=== PATIENT | female | born 1955 | race African-American/Black ===

== ENCOUNTER 2021-04-09 12:59 | Inpatient (IN) ==
[2021-04-09] MEDS ORDERED: FUROSEMIDE 40 MG/4 ML VIAL IV STA (13:55)
[2021-04-09] MEDS ORDERED: MORPHINE 2 MG/1 ML SYRINGE IV STA (13:55)
[2021-04-09 14:03] LABS: ABG Base Excess 4.6 MMOL/L (-2.5-2.5); ABG HCO3 28.2 MMOL/L (20-26); ABG Oxygen Saturation 83.6 % (95-100); ABG PCO2 45.9 MM HG (35-48); ABG PH 7.421 (7.35-7.45); ABG PO2 49.7 MM HG (80-95); ABG TCO2 26.4 MMOL/L (23-27)
[2021-04-09] MEDS ORDERED: VANCOMYCIN INJ 2,000 MG in SODIUM CHLORIDE 0.9% 500 ML IV ONE (14:03)
[2021-04-09] MEDS ORDERED: cefTRIAXone 2,000 MG in SODIUM CHLORIDE 0.9% 100 ML IV ONE (14:03)
[2021-04-09 14:26] LABS: Calcium 8.5 MG/DL (8.5-10.1); Osmolality,Calculated 288.1 MOS/KG (273-304); Potassium 4.6 MMOL/L (3.5-5.1)
[2021-04-09 14:40] LABS: Basophils % 0.1 % (0.0-0.8); Hematocrit 39.6 VOL% (35.7-47.0); Hemoglobin 12.3 GM/DL (12.0-16.0); Immature Granulocytes % 0.9 %; Immature Granulocytes Absolute 0.07 #; Lymphocytes % 12.8 % (21.3-54.2); Mean Corpuscular HGB Conc 31.1 GM/DL (32-36); Mean Corpuscular Volume 86.5 FL (87-102); Mean Platelet Volume 10.6 FL (9.6-12.0); Monocytes % 3.9 % (1.7-12.7); NRBC # 0.02 10*3/uL; Neutrophils % 82.3 % (38.7-73.9); Platelet Count 316 T/CUMM (130-400); Red Blood Count 4.58 MC/CUMM (3.8-5.5); Red Cell Distribution Width 14.6 % (9.3-17.3); White Blood Count 7.5 T/CUMM (4-12)
[2021-04-09] MEDS ORDERED: ONDANSETRON 4 MG/2 ML VIAL IV PRN (15:36)
[2021-04-09] MEDS ORDERED: DEXTROSE 50% 25 GM/50 ML VIAL IV PRN (15:36)
[2021-04-09] MEDS ORDERED: ACETAMINOPHEN 325 MG TABLET PO PRN (15:36)
[2021-04-09] MEDS ORDERED: CETIRIZINE 10 MG TABLET PO PRN (15:36)
[2021-04-09] MEDS ORDERED: GLUCAGON 1 MG VIAL IM PRN (15:36)
[2021-04-09] MEDS ORDERED: DILTIAZEM 50 MG/10 ML VIAL IV STA (15:57)
[2021-04-09] MEDS ORDERED: cefTRIAXone 1,000 MG in SODIUM CHLORIDE 0.9% 100 ML IV SCH (16:00)
[2021-04-09 16:05] LABS: Ferritin 1073.4 ng/ml (8-252)
[2021-04-09 16:11] LABS: Risk Ratio 4.5; Thyroid Stimulating Hormone 0.167 uIU/ml (0.358-3.74); VLDL Cholesterol 28.8 MG/DL
[2021-04-09] MEDS ORDERED: RIVAROXABAN 10 MG TABLET PO SCH (17:00)
[2021-04-09] MEDS: DEXAMETHASONE 4 MG/1 ML VIAL IV SCH (17:06)
[2021-04-09 17:13] LABS: Hypochromasia 1+; Lymphocytes 15 % (20-55); Segmented Neutrophils 84 % (50-85); Total Cells Counted 100
[2021-04-09 17:14] LABS: Atypical Lymphocytes Few; Platelet Estimate Normal
[2021-04-09 18:05] LABS: Free T4 (Free Thyroxine) 1.31 NG/DL (0.76-1.46)
[2021-04-09] MEDS: DILTIAZEM INJ 100 MG in SODIUM CHLORIDE 0.9% 100 ML IV SCH (18:35)
[2021-04-09] MEDS ORDERED: FAMOTIDINE 20 MG TABLET PO SCH (21:00)
[2021-04-09] MEDS: INSULIN LISPRO 100 UNIT/ML SUBCUT SCH ×2 (21:12→21:37)
[2021-04-09] MEDS: ASCORBIC ACID 500 MG TABLET PO SCH (21:26)
[2021-04-09] MEDS: APIXABAN 5 MG TABLET PO SCH (21:37)
[2021-04-10] MEDS: ALBUTEROL INHALER 18 GM INH SCH ×5 (03:00→19:30)
[2021-04-10 03:03] LABS: ABG Base Excess 5.1 MMOL/L (-2.5-2.5); ABG HCO3 28.7 MMOL/L (20-26); ABG Oxygen Saturation 84.1 % (95-100); ABG PCO2 47.4 MM HG (35-48); ABG PH 7.417 (7.35-7.45); ABG PO2 50.2 MM HG (80-95)
[2021-04-10] MEDS ORDERED: ETOMIDATE 20 MG/10 ML VIAL IV ONE (03:32)
[2021-04-10] MEDS ORDERED: ROCURONIUM 100 MG/10 ML VIAL IV ONE ×2 (03:33→05:52)
[2021-04-10] MEDS ORDERED: DILTIAZEM INJ 100 MG in SODIUM CHLORIDE 0.9% 100 ML IV SCH (05:00)
[2021-04-10] MEDS: MIDAZOLAM 100 MG in SODIUM CHLORIDE 0.9% 80 ML IV PRN ×3 (05:45→18:41)
[2021-04-10 05:49] LABS: Osmolality,Calculated 291.1 MOS/KG (273-304); Potassium 4.4 MMOL/L (3.5-5.1)
[2021-04-10 05:51] LABS: Basophils % 0.2 % (0.0-0.8); Hematocrit 42.7 VOL% (35.7-47.0); Hemoglobin 12.9 GM/DL (12.0-16.0); Immature Granulocytes % 0.9 %; Immature Granulocytes Absolute 0.09 #; Lymphocytes # 1.9 10*3/uL (1.4-4.0); Lymphocytes % 19.6 % (21.3-54.2); Mean Corpuscular HGB Conc 30.2 GM/DL (32-36); Mean Corpuscular Volume 88.8 FL (87-102); Mean Platelet Volume 10.8 FL (9.6-12.0); Monocytes % 5.2 % (1.7-12.7); NRBC # 0.02 10*3/uL; Neutrophils % 74.1 % (38.7-73.9); Platelet Count 388 T/CUMM (130-400); Red Blood Count 4.81 MC/CUMM (3.8-5.5); White Blood Count 9.7 T/CUMM (4-12)
[2021-04-10 06:06] LABS: Lymphocytes 23 % (20-55); Platelet Estimate Normal; Segmented Neutrophils 71 % (50-85); Total Cells Counted 100
[2021-04-10 06:12] LABS: Ferritin 1169.3 ng/ml (8-252)
[2021-04-10 06:14] LABS: ABG HCO3 26.7 MMOL/L (20-26); ABG PCO2 57.9 MM HG (35-48); ABG PH 7.332 (7.35-7.45); ABG PO2 55.3 MM HG (80-95)
[2021-04-10] MEDS ORDERED: fentaNYL 100 MCG/2 ML VIAL IV PRN (07:36)
[2021-04-10] MEDS: INSULIN LISPRO 100 UNIT/ML SUBCUT SCH ×4 (07:37→21:01)
[2021-04-10] MEDS ORDERED: DIGOXIN 0.5 MG/2 ML AMP IV STA (07:38)
[2021-04-10] MEDS ORDERED: MIDAZOLAM 2 MG/2 ML VIAL ONE (08:05)
[2021-04-10] MEDS ORDERED: MIDAZOLAM 2 MG/2 ML VIAL IV STA (08:09)
[2021-04-10] MEDS ORDERED: DIGOXIN 0.5 MG/2 ML AMP IV ONE (08:15)
[2021-04-10] MEDS: fentaNYL INJ 1,250 MCG in SODIUM CHLORIDE 0.9% 225 ML IV PRN ×2 (08:30→16:40)
[2021-04-10] MEDS ORDERED: AZITHROMYCIN 250 MG TABLET PO SCH (09:00)
[2021-04-10] MEDS: ZINC SULFATE 220 MG CAPSULE PO SCH (10:07)
[2021-04-10] MEDS: APIXABAN 5 MG TABLET PO SCH ×2 (10:07→21:01)
[2021-04-10] MEDS: FAMOTIDINE 20 MG TABLET PER TUBE SCH ×2 (10:07→21:01)
[2021-04-10] MEDS: CHOLECALCIFEROL 1,000 UNIT TABLET PO SCH (10:07)
[2021-04-10] MEDS: ASCORBIC ACID 500 MG TABLET PO SCH ×2 (10:07→21:01)
[2021-04-10] MEDS: AZITHROMYCIN INJ 500 MG in SODIUM CHLORIDE 0.9% 250 ML IV SCH (10:30)
[2021-04-10] MEDS: cefTRIAXone 1,000 MG in SODIUM CHLORIDE 0.9% 100 ML IV SCH (14:02)
[2021-04-10] MEDS ORDERED: FUROSEMIDE 40 MG/4 ML VIAL IV ONE (16:00)
[2021-04-10] MEDS: DILTIAZEM INJ 100 MG in SODIUM CHLORIDE 0.9% 100 ML IV SCH (16:13)
[2021-04-10] MEDS: DEXAMETHASONE 4 MG/1 ML VIAL IV SCH (16:16)
[2021-04-11] MEDS: fentaNYL INJ 1,250 MCG in SODIUM CHLORIDE 0.9% 225 ML IV PRN ×3 (00:14→16:20)
[2021-04-11] MEDS: MIDAZOLAM 100 MG in SODIUM CHLORIDE 0.9% 80 ML IV PRN ×4 (00:15→19:05)
[2021-04-11] MEDS: ALBUTEROL INHALER 18 GM INH SCH ×4 (01:35→19:30)
[2021-04-11 04:21] LABS: ABG Base Excess 3.3 MMOL/L (-2.5-2.5); ABG HCO3 27.2 MMOL/L (20-26); ABG Oxygen Saturation 89.2 % (95-100); ABG PCO2 46.9 MM HG (35-48); ABG PH 7.397 (7.35-7.45); ABG PO2 60.8 MM HG (80-95); ABG TCO2 25.8 MMOL/L (23-27)
[2021-04-11] MEDS ORDERED: ROCURONIUM 100 MG/10 ML VIAL IV ONE (04:26)
[2021-04-11 04:30] LABS: Basophils % 0.1 % (0.0-0.8); Hematocrit 37.2 VOL% (35.7-47.0); Hemoglobin 11.2 GM/DL (12.0-16.0); Immature Granulocytes % 6.2 %; Immature Granulocytes Absolute 1.19 #; Lymphocytes # 1.4 10*3/uL (1.4-4.0); Lymphocytes % 7.4 % (21.3-54.2); Mean Corpuscular HGB Conc 30.1 GM/DL (32-36); Mean Corpuscular Volume 87.9 FL (87-102); Mean Platelet Volume 11.1 FL (9.6-12.0); NRBC # 0.03 10*3/uL; Neutrophils % 84.3 % (38.7-73.9); Platelet Count 343 T/CUMM (130-400); Red Blood Count 4.23 MC/CUMM (3.8-5.5); Red Cell Distribution Width 14.9 % (9.3-17.3); White Blood Count 19.2 T/CUMM (4-12)
[2021-04-11 04:51] LABS: Calcium 8.5 MG/DL (8.5-10.1); Potassium 4.9 MMOL/L (3.5-5.1)
[2021-04-11 04:55] LABS: Ferritin 1259.9 ng/ml (8-252)
[2021-04-11 04:56] LABS: Band Neutrophils 1 % (0-10); Hypochromasia 1+; Lymphocytes 1 % (20-55); Microcytosis 1+; Platelet Estimate Adequate; Segmented Neutrophils 96 % (50-85); Total Cells Counted 100
[2021-04-11 06:28] LABS: Amorphous Crystals,Urine Moderate /HPF (Few); Bilirubin,Urine Negative (Negative); Blood, Urine Moderate mg/dL (Negative); Glucose,Urine (UA) Negative (Negative); Ketones,Urine Negative (Negative); Nitrite,Urine Negative (Negative); Protein,Urine 100 MG/DL; RBC,Urine 4 /HPF (0-4); Urine Appearance CLOUDY (Clear); Urine Color Yellow (Yellow); Urine Specific Gravity 1.025 (1.001-1.035); Urine Urobilinogen < 2.0 EU/DL (0.2-1.0)
[2021-04-11] MEDS: INSULIN LISPRO 100 UNIT/ML SUBCUT SCH ×3 (09:25→18:00)
[2021-04-11] MEDS: FUROSEMIDE 40 MG/4 ML VIAL IV SCH (09:25)
[2021-04-11] MEDS: DIGOXIN 0.5 MG/2 ML AMP IV SCH (09:25)
[2021-04-11] MEDS: ZINC SULFATE 220 MG CAPSULE PO SCH (09:30)
[2021-04-11] MEDS: ASCORBIC ACID 500 MG TABLET PO SCH ×2 (09:30→21:27)
[2021-04-11] MEDS: APIXABAN 5 MG TABLET PO SCH ×2 (09:30→21:27)
[2021-04-11] MEDS: CHOLECALCIFEROL 1,000 UNIT TABLET PO SCH (09:30)
[2021-04-11] MEDS: FAMOTIDINE 20 MG TABLET PER TUBE SCH ×2 (09:30→21:27)
[2021-04-11] MEDS: AZITHROMYCIN INJ 500 MG in SODIUM CHLORIDE 0.9% 250 ML IV SCH (10:35)
[2021-04-11] MEDS: cefTRIAXone 1,000 MG in SODIUM CHLORIDE 0.9% 100 ML IV SCH (15:00)
[2021-04-11] MEDS: DILTIAZEM INJ 100 MG in SODIUM CHLORIDE 0.9% 100 ML IV SCH (16:00)
[2021-04-11] MEDS: DEXAMETHASONE 4 MG/1 ML VIAL IV SCH (16:10)
[2021-04-12] MEDS: fentaNYL INJ 1,250 MCG in SODIUM CHLORIDE 0.9% 225 ML IV PRN ×4 (00:09→16:51)
[2021-04-12] MEDS: INSULIN LISPRO 100 UNIT/ML SUBCUT SCH ×4 (00:50→17:39)
[2021-04-12] MEDS: ALBUTEROL INHALER 18 GM INH SCH ×3 (01:34→14:16)
[2021-04-12 03:40] LABS: ABG Base Excess 3.8 MMOL/L (-2.5-2.5); ABG HCO3 27.7 MMOL/L (20-26); ABG Oxygen Saturation 92.5 % (95-100); ABG PCO2 46.1 MM HG (35-48); ABG PH 7.409 (7.35-7.45); ABG PO2 69.7 MM HG (80-95); ABG TCO2 25.9 MMOL/L (23-27); Allen Test Positive; Pt O2 Delivery Device Ventilator
[2021-04-12 04:07] LABS: Basophils % 0.1 % (0.0-0.8); Hematocrit 36.5 VOL% (35.7-47.0); Immature Granulocytes % 1.2 %; Immature Granulocytes Absolute 0.13 #; Lymphocytes % 9.7 % (21.3-54.2); Mean Corpuscular HGB Conc 30.1 GM/DL (32-36); Mean Corpuscular Volume 87.7 FL (87-102); Mean Platelet Volume 11.3 FL (9.6-12.0); Monocytes % 3.3 % (1.7-12.7); NRBC # 0.03 10*3/uL; Neutrophils % 85.7 % (38.7-73.9); Platelet Count 391 T/CUMM (130-400); Red Blood Count 4.16 MC/CUMM (3.8-5.5); Red Cell Distribution Width 14.6 % (9.3-17.3); White Blood Count 10.7 T/CUMM (4-12)
[2021-04-12 04:40] LABS: Lymphocytes 7 % (20-55); Platelet Estimate Adequate; Segmented Neutrophils 90 % (50-85); Total Cells Counted 100
[2021-04-12 04:41] LABS: Hypochromasia Slight; Microcytosis Slight
[2021-04-12 04:42] LABS: Ferritin 1324.3 ng/ml (8-252)
[2021-04-12] MEDS: MIDAZOLAM 100 MG in SODIUM CHLORIDE 0.9% 80 ML IV PRN ×3 (07:43→21:40)
[2021-04-12 08:05] LABS: Calcium 8.9 MG/DL (8.5-10.1); Potassium 4.8 MMOL/L (3.5-5.1)
[2021-04-12] MEDS: FUROSEMIDE 40 MG/4 ML VIAL IV SCH (08:19)
[2021-04-12] MEDS: CHOLECALCIFEROL 1,000 UNIT TABLET PO SCH (08:19)
[2021-04-12] MEDS: DIGOXIN 0.5 MG/2 ML AMP IV SCH (08:19)
[2021-04-12] MEDS: FAMOTIDINE 20 MG TABLET PER TUBE SCH ×2 (08:19→21:37)
[2021-04-12] MEDS: ASCORBIC ACID 500 MG TABLET PO SCH ×2 (08:19→21:36)
[2021-04-12] MEDS: ZINC SULFATE 220 MG CAPSULE PO SCH (08:19)
[2021-04-12] MEDS: AZITHROMYCIN INJ 500 MG in SODIUM CHLORIDE 0.9% 250 ML IV SCH (10:08)
[2021-04-12] MEDS: SODIUM CHLORIDE 0.9% 1,000 ML IV SCH (11:07)
[2021-04-12] MEDS: cefTRIAXone 1,000 MG in SODIUM CHLORIDE 0.9% 100 ML IV SCH (13:34)
[2021-04-12] MEDS: DILTIAZEM INJ 100 MG in SODIUM CHLORIDE 0.9% 100 ML IV SCH (15:06)
[2021-04-12] MEDS: DEXAMETHASONE 4 MG/1 ML VIAL IV SCH (15:37)
[2021-04-13] MEDS: INSULIN LISPRO 100 UNIT/ML SUBCUT SCH ×4 (00:20→17:51)
[2021-04-13] MEDS: ALBUTEROL INHALER 18 GM INH SCH ×5 (00:30→20:25)
[2021-04-13] MEDS: fentaNYL INJ 1,250 MCG in SODIUM CHLORIDE 0.9% 225 ML IV PRN ×2 (00:40→17:04)
[2021-04-13] MEDS: MIDAZOLAM 100 MG in SODIUM CHLORIDE 0.9% 80 ML IV PRN ×3 (05:00→19:38)
[2021-04-13 05:13] LABS: ABG Base Excess 3.1 MMOL/L (-2.5-2.5); ABG HCO3 29.4 MMOL/L (20-26); ABG Oxygen Saturation 88.2 % (95-100); ABG PCO2 52.2 MM HG (35-48); ABG PH 7.369 (7.35-7.45); ABG PO2 58.6 MM HG (80-95)
[2021-04-13 06:03] LABS: Potassium 4.9 MMOL/L (3.5-5.1)
[2021-04-13 06:26] LABS: Ferritin 1411.4 ng/ml (8-252)
[2021-04-13 06:50] LABS: Basophils % 0.3 % (0.0-0.8); Hematocrit 43.1 VOL% (35.7-47.0); Hemoglobin 13.1 GM/DL (12.0-16.0); Immature Granulocytes % 1.7 %; Lymphocytes % 8.4 % (21.3-54.2); Mean Corpuscular HGB Conc 30.4 GM/DL (32-36); Mean Corpuscular Volume 89.2 FL (87-102); Mean Platelet Volume 11.2 FL (9.6-12.0); Monocytes % 3.4 % (1.7-12.7); NRBC # 0.08 10*3/uL; Neutrophils % 86.2 % (38.7-73.9); Platelet Count 354 T/CUMM (130-400); Red Blood Count 4.83 MC/CUMM (3.8-5.5); White Blood Count 11.6 T/CUMM (4-12)
[2021-04-13 06:53] LABS: Anisocytosis 1+; Platelet Estimate Normal
[2021-04-13] MEDS: ZINC SULFATE 220 MG CAPSULE PO SCH (08:08)
[2021-04-13] MEDS: FUROSEMIDE 40 MG/4 ML VIAL IV SCH (08:08)
[2021-04-13] MEDS: FAMOTIDINE 20 MG TABLET PER TUBE SCH ×2 (08:08→21:25)
[2021-04-13] MEDS: CHOLECALCIFEROL 1,000 UNIT TABLET PO SCH (08:08)
[2021-04-13] MEDS: ASCORBIC ACID 500 MG TABLET PO SCH ×2 (08:08→21:26)
[2021-04-13] MEDS: DIGOXIN 0.5 MG/2 ML AMP IV SCH (08:42)
[2021-04-13] MEDS: APIXABAN 5 MG TABLET PO SCH ×2 (10:13→11:18)
[2021-04-13] MEDS: cefTRIAXone 1,000 MG in SODIUM CHLORIDE 0.9% 100 ML IV SCH (14:12)
[2021-04-13] MEDS: DEXAMETHASONE 4 MG/1 ML VIAL IV SCH (15:58)
[2021-04-13] MEDS: SODIUM CHLORIDE 0.9% 1,000 ML IV SCH (19:12)
[2021-04-14] MEDS: INSULIN LISPRO 100 UNIT/ML SUBCUT SCH ×4 (00:06→19:30)
[2021-04-14] MEDS: ALBUTEROL INHALER 18 GM INH SCH ×4 (00:07→19:27)
[2021-04-14 04:05] LABS: ABG Base Excess 2.4 MMOL/L (-2.5-2.5); ABG HCO3 28.6 MMOL/L (20-26); ABG Oxygen Saturation 88.1 % (95-100); ABG PH 7.366 (7.35-7.45); ABG TCO2 30.1 MMOL/L (23-27); Allen Test Positive; Pt O2 Delivery Device Ventilator
[2021-04-14] MEDS: MIDAZOLAM 100 MG in SODIUM CHLORIDE 0.9% 80 ML IV PRN ×4 (04:24→23:50)
[2021-04-14 05:00] LABS: Basophils % 0.1 % (0.0-0.8); Eosinophils % 0.1 % (0.00-10.9); Hematocrit 38.3 VOL% (35.7-47.0); Hemoglobin 11.6 GM/DL (12.0-16.0); Immature Granulocytes % 2.2 %; Lymphocytes # 0.9 10*3/uL (1.4-4.0); Lymphocytes % 6.3 % (21.3-54.2); Mean Corpuscular HGB Conc 30.3 GM/DL (32-36); Mean Corpuscular Volume 89.1 FL (87-102); Mean Platelet Volume 10.9 FL (9.6-12.0); Monocytes % 3.2 % (1.7-12.7); NRBC # 0.06 10*3/uL; Neutrophils % 88.1 % (38.7-73.9); Platelet Count 380 T/CUMM (130-400); Red Cell Distribution Width 15.1 % (9.3-17.3); White Blood Count 13.6 T/CUMM (4-12)
[2021-04-14 05:23] LABS: Calcium 8.7 MG/DL (8.5-10.1); Osmolality,Calculated 307.7 MOS/KG (273-304)
[2021-04-14] MEDS: fentaNYL INJ 1,250 MCG in SODIUM CHLORIDE 0.9% 225 ML IV PRN (10:00)
[2021-04-14] MEDS ORDERED: hydrALAZINE 20 MG/1 ML VIAL IV PRN (10:46)
[2021-04-14] MEDS ORDERED: FUROSEMIDE 40 MG/4 ML VIAL ONE (11:07)
[2021-04-14] MEDS: ZINC SULFATE 220 MG CAPSULE PO SCH (11:30)
[2021-04-14] MEDS: FUROSEMIDE 40 MG/4 ML VIAL IV SCH (11:30)
[2021-04-14] MEDS: FAMOTIDINE 20 MG TABLET PER TUBE SCH ×2 (11:30→23:49)
[2021-04-14] MEDS: ASCORBIC ACID 500 MG TABLET PO SCH ×2 (11:30→23:49)
[2021-04-14] MEDS: CHOLECALCIFEROL 1,000 UNIT TABLET PO SCH (11:30)
[2021-04-14] MEDS: ENOXAPARIN 150 MG/ML SYRINGE SUBCUT SCH ×2 (11:30→23:59)
[2021-04-14] MEDS: SODIUM CHLORIDE 0.9% 1,000 ML IV SCH (13:10)
[2021-04-14] MEDS: cefTRIAXone 1,000 MG in SODIUM CHLORIDE 0.9% 100 ML IV SCH (15:00)
[2021-04-14] MEDS: DEXAMETHASONE 4 MG/1 ML VIAL IV SCH (19:29)
[2021-04-14] MEDS ORDERED: ROCURONIUM 100 MG/10 ML VIAL IV ONE ×2 (21:19→21:32)
[2021-04-15] MEDS: INSULIN LISPRO 100 UNIT/ML SUBCUT SCH ×4 (00:07→18:34)
[2021-04-15] MEDS: ALBUTEROL INHALER 18 GM INH SCH ×4 (01:39→18:13)
[2021-04-15 03:28] LABS: ABG Base Excess 2.6 MMOL/L (-2.5-2.5); ABG HCO3 26.7 MMOL/L (20-26); ABG Oxygen Saturation 97.6 % (95-100); ABG PCO2 53.1 MM HG (35-48); ABG TCO2 26.2 MMOL/L (23-27)
[2021-04-15 04:34] LABS: Eosinophils % 0.1 % (0.00-10.9); Hematocrit 39.2 VOL% (35.7-47.0); Mean Platelet Volume 11.1 FL (9.6-12.0)
[2021-04-15] MEDS: fentaNYL INJ 1,250 MCG in SODIUM CHLORIDE 0.9% 225 ML IV PRN (04:49)
[2021-04-15 04:52] LABS: Calcium 8.8 MG/DL (8.5-10.1)
[2021-04-15 04:58] LABS: Basophils % 0.2 % (0.0-0.8); Immature Granulocytes Absolute 0.26 #; Lymphocytes % 7.7 % (21.3-54.2); Mean Corpuscular HGB Conc 28.8 GM/DL (32-36); Monocytes % 2.4 % (1.7-12.7); NRBC # 0.06 10*3/uL; Neutrophils % 87.6 % (38.7-73.9); Platelet Count 350 T/CUMM (130-400); Red Blood Count 4.31 MC/CUMM (3.8-5.5); Red Cell Distribution Width 15.1 % (9.3-17.3); White Blood Count 13.1 T/CUMM (4-12)
[2021-04-15 04:59] LABS: Hemoglobin 11.3 GM/DL (12.0-16.0)
[2021-04-15 05:21] LABS: Hypochromasia Slight; Microcytosis Slight; Platelet Estimate Adequate
[2021-04-15] MEDS: MIDAZOLAM 100 MG in SODIUM CHLORIDE 0.9% 80 ML IV PRN ×3 (08:00→20:31)
[2021-04-15] MEDS: ASCORBIC ACID 500 MG TABLET PO SCH ×2 (09:15→22:29)
[2021-04-15] MEDS: FAMOTIDINE 20 MG TABLET PER TUBE SCH ×2 (09:15→22:29)
[2021-04-15] MEDS: ZINC SULFATE 220 MG CAPSULE PO SCH (09:15)
[2021-04-15] MEDS: ENOXAPARIN 150 MG/ML SYRINGE SUBCUT SCH ×2 (10:13→22:32)
[2021-04-15] MEDS: cefTRIAXone 1,000 MG in SODIUM CHLORIDE 0.9% 100 ML IV SCH (15:00)
[2021-04-15] MEDS: DEXAMETHASONE 4 MG/1 ML VIAL IV SCH (15:30)
[2021-04-15] MEDS: fentaNYL INJ 5,000 MCG in SODIUM CHLORIDE 0.9% 150 ML IV PRN (18:00)
[2021-04-15] MEDS: CHOLECALCIFEROL 1,000 UNIT TABLET PO SCH (18:06)
[2021-04-15] MEDS: SODIUM CHLORIDE 0.9% 1,000 ML IV SCH (18:06)
[2021-04-16] MEDS: INSULIN LISPRO 100 UNIT/ML SUBCUT SCH ×4 (00:47→18:25)
[2021-04-16] MEDS: ALBUTEROL INHALER 18 GM INH SCH ×4 (00:47→18:25)
[2021-04-16] MEDS: MIDAZOLAM 100 MG in SODIUM CHLORIDE 0.9% 80 ML IV PRN ×3 (02:49→22:20)
[2021-04-16 04:05] LABS: ABG Base Excess 2.8 MMOL/L (-2.5-2.5); ABG HCO3 28.5 MMOL/L (20-26); ABG Oxygen Saturation 94.7 % (95-100); ABG PCO2 48.3 MM HG (35-48); ABG PH 7.388 (7.35-7.45); ABG PO2 77.7 MM HG (80-95); ABG TCO2 29.9 MMOL/L (23-27)
[2021-04-16 04:57] LABS: Basophils % 0.2 % (0.0-0.8); Hematocrit 37.4 VOL% (35.7-47.0); Hemoglobin 11.1 GM/DL (12.0-16.0); Immature Granulocytes % 2.4 %; Immature Granulocytes Absolute 0.32 #; Lymphocytes # 1.3 10*3/uL (1.4-4.0); Lymphocytes % 9.9 % (21.3-54.2); Mean Corpuscular HGB Conc 29.7 GM/DL (32-36); Mean Corpuscular Volume 90.6 FL (87-102); Mean Platelet Volume 11.4 FL (9.6-12.0); Monocytes % 3.5 % (1.7-12.7); NRBC # 0.05 10*3/uL; Platelet Count 320 T/CUMM (130-400); Red Blood Count 4.13 MC/CUMM (3.8-5.5); Red Cell Distribution Width 15.3 % (9.3-17.3); White Blood Count 13.2 T/CUMM (4-12)
[2021-04-16 04:59] LABS: Calcium 8.7 MG/DL (8.5-10.1); Osmolality,Calculated 317.3 MOS/KG (273-304); Potassium 4.9 MMOL/L (3.5-5.1)
[2021-04-16 05:21] LABS: Hypochromasia 1+; Lymphocytes 7 % (20-55); Microcytosis 1+; Platelet Estimate Adequate; Segmented Neutrophils 89 % (50-85); Total Cells Counted 100
[2021-04-16] MEDS: CHOLECALCIFEROL 1,000 UNIT TABLET PO SCH (09:53)
[2021-04-16] MEDS: FAMOTIDINE 20 MG TABLET PER TUBE SCH ×2 (09:54→21:04)
[2021-04-16] MEDS: ASCORBIC ACID 500 MG TABLET PO SCH ×2 (09:54→21:04)
[2021-04-16] MEDS: ZINC SULFATE 220 MG CAPSULE PO SCH (09:54)
[2021-04-16] MEDS: ENOXAPARIN 150 MG/ML SYRINGE SUBCUT SCH (12:00)
[2021-04-16] MEDS: cefTRIAXone 1,000 MG in SODIUM CHLORIDE 0.9% 100 ML IV SCH (15:00)
[2021-04-16] MEDS: DEXAMETHASONE 4 MG/1 ML VIAL IV SCH (15:30)
[2021-04-16] MEDS: SODIUM CHLORIDE 0.9% 1,000 ML IV SCH (17:00)
[2021-04-17] MEDS: ENOXAPARIN 150 MG/ML SYRINGE SUBCUT SCH ×3 (00:46→23:55)
[2021-04-17] MEDS: INSULIN LISPRO 100 UNIT/ML SUBCUT SCH ×4 (00:51→18:25)
[2021-04-17] MEDS: ALBUTEROL INHALER 18 GM INH SCH ×4 (02:31→21:03)
[2021-04-17 03:29] LABS: ABG Base Excess 2.6 MMOL/L (-2.5-2.5); ABG HCO3 26.5 MMOL/L (20-26); ABG Oxygen Saturation 89.1 % (95-100); ABG PH 7.345 (7.35-7.45); ABG PO2 61.6 MM HG (80-95); ABG TCO2 26.4 MMOL/L (23-27)
[2021-04-17 05:36] LABS: Basophils % 0.1 % (0.0-0.8); Hematocrit 39.6 VOL% (35.7-47.0); Hemoglobin 11.9 GM/DL (12.0-16.0); Immature Granulocytes % 2.7 %; Immature Granulocytes Absolute 0.47 #; Lymphocytes # 1.6 10*3/uL (1.4-4.0); Mean Corpuscular HGB Conc 30.1 GM/DL (32-36); Mean Corpuscular Volume 90.2 FL (87-102); Monocytes % 3.4 % (1.7-12.7); NRBC # 0.06 10*3/uL; Neutrophils % 84.8 % (38.7-73.9); Platelet Count 375 T/CUMM (130-400); Red Blood Count 4.39 MC/CUMM (3.8-5.5); Red Cell Distribution Width 15.6 % (9.3-17.3); White Blood Count 17.4 T/CUMM (4-12)
[2021-04-17 05:39] LABS: Calcium 8.9 MG/DL (8.5-10.1); Osmolality,Calculated 316.3 MOS/KG (273-304); Potassium 5.1 MMOL/L (3.5-5.1)
[2021-04-17] MEDS: DILTIAZEM INJ 100 MG in SODIUM CHLORIDE 0.9% 100 ML IV SCH ×3 (05:44→20:12)
[2021-04-17] MEDS: MIDAZOLAM 100 MG in SODIUM CHLORIDE 0.9% 80 ML IV PRN ×2 (09:30→18:55)
[2021-04-17] MEDS: ZINC SULFATE 220 MG CAPSULE PO SCH (09:53)
[2021-04-17] MEDS: ASCORBIC ACID 500 MG TABLET PO SCH ×2 (09:53→21:02)
[2021-04-17] MEDS: FAMOTIDINE 20 MG TABLET PER TUBE SCH ×2 (09:53→21:02)
[2021-04-17] MEDS: CHOLECALCIFEROL 1,000 UNIT TABLET PO SCH (09:53)
[2021-04-17] MEDS: SODIUM CHLORIDE 0.9% 1,000 ML IV SCH (15:27)
[2021-04-17] MEDS: METOPROLOL TARTRATE 25 MG TABLET PO SCH ×2 (15:37→21:02)
[2021-04-17] MEDS: cefTRIAXone 1,000 MG in SODIUM CHLORIDE 0.9% 100 ML IV SCH (15:37)
[2021-04-17] MEDS: DEXAMETHASONE 4 MG/1 ML VIAL IV SCH (15:38)
[2021-04-17] MEDS ORDERED: ROCURONIUM 500 MG in SODIUM CHLORIDE 0.9% 500 ML IV PRN (23:01)
[2021-04-18] MEDS: INSULIN LISPRO 100 UNIT/ML SUBCUT SCH ×4 (00:10→18:40)
[2021-04-18] MEDS: ROCURONIUM 1,000 MG in SODIUM CHLORIDE 0.9% 175 ML IV PRN ×3 (00:12→18:52)
[2021-04-18] MEDS: ALBUTEROL INHALER 18 GM INH SCH ×4 (01:35→18:40)
[2021-04-18] MEDS: DILTIAZEM INJ 100 MG in SODIUM CHLORIDE 0.9% 100 ML IV SCH ×3 (02:17→09:46)
[2021-04-18 04:36] LABS: Calcium 8.6 MG/DL (8.5-10.1); Osmolality,Calculated 317.3 MOS/KG (273-304); Potassium 5.6 MMOL/L (3.5-5.1)
[2021-04-18 04:48] LABS: Basophils % 0.2 % (0.0-0.8); Eosinophils % 0.1 % (0.00-10.9); Hematocrit 38.4 VOL% (35.7-47.0); Hemoglobin 11.3 GM/DL (12.0-16.0); Immature Granulocytes % 1.7 %; Immature Granulocytes Absolute 0.29 #; Lymphocytes # 1.3 10*3/uL (1.4-4.0); Lymphocytes % 7.2 % (21.3-54.2); Mean Corpuscular HGB Conc 29.4 GM/DL (32-36); Mean Corpuscular Volume 91.2 FL (87-102); Mean Platelet Volume 12.2 FL (9.6-12.0); Monocytes % 2.6 % (1.7-12.7); Neutrophils % 88.2 % (38.7-73.9); Platelet Count 367 T/CUMM (130-400); Red Blood Count 4.21 MC/CUMM (3.8-5.5); Red Cell Distribution Width 15.8 % (9.3-17.3); White Blood Count 17.4 T/CUMM (4-12)
[2021-04-18 05:10] LABS: Hypochromasia 1+; Microcytosis 1+; Platelet Estimate Normal
[2021-04-18] MEDS: MIDAZOLAM 100 MG in SODIUM CHLORIDE 0.9% 80 ML IV PRN ×2 (05:12→16:02)
[2021-04-18 05:29] LABS: ABG Base Excess -0.4 MMOL/L (-2.5-2.5); ABG HCO3 26.5 MMOL/L (20-26); ABG Oxygen Saturation 87.5 % (95-100); ABG PCO2 52.8 MM HG (35-48); ABG PH 7.318 (7.35-7.45); ABG PO2 60.4 MM HG (80-95); ABG TCO2 28.1 MMOL/L (23-27); Allen Test Positive; Pt O2 Delivery Device Ventilator
[2021-04-18] MEDS ORDERED: SODIUM POLYSTYRENE SULFATE 15 GM/60 ML BOTTLE PO ONE (06:26)
[2021-04-18] MEDS: DILTIAZEM 90 MG TABLET PO SCH ×4 (09:42→20:23)
[2021-04-18] MEDS: FAMOTIDINE 20 MG TABLET PER TUBE SCH ×2 (09:45→20:23)
[2021-04-18] MEDS: METOPROLOL TARTRATE 25 MG TABLET PO SCH ×2 (09:45→20:23)
[2021-04-18] MEDS: ASCORBIC ACID 500 MG TABLET PO SCH ×2 (09:45→20:23)
[2021-04-18] MEDS: CHOLECALCIFEROL 1,000 UNIT TABLET PO SCH (09:46)
[2021-04-18] MEDS: ZINC SULFATE 220 MG CAPSULE PO SCH (09:46)
[2021-04-18] MEDS: SODIUM CHLORIDE 0.9% 1,000 ML IV SCH (12:41)
[2021-04-18] MEDS: ENOXAPARIN 150 MG/ML SYRINGE SUBCUT SCH ×2 (12:41→23:50)
[2021-04-18] MEDS: DEXAMETHASONE 4 MG/1 ML VIAL IV SCH (17:24)
[2021-04-19] MEDS: ALBUTEROL INHALER 18 GM INH SCH ×4 (01:30→18:13)
[2021-04-19] MEDS: MIDAZOLAM 100 MG in SODIUM CHLORIDE 0.9% 80 ML IV PRN ×3 (01:40→19:37)
[2021-04-19] MEDS: INSULIN LISPRO 100 UNIT/ML SUBCUT SCH ×4 (02:30→17:19)
[2021-04-19] MEDS: SODIUM CHLORIDE 0.9% 1,000 ML IV SCH ×2 (02:35→18:13)
[2021-04-19] MEDS: ROCURONIUM 1,000 MG in SODIUM CHLORIDE 0.9% 175 ML IV PRN ×2 (04:05→14:45)
[2021-04-19 04:22] LABS: Allen Test Positive; Pt O2 Delivery Device Ventilator
[2021-04-19 04:29] LABS: ABG Base Excess 1.3 MMOL/L (-2.5-2.5); ABG HCO3 26.9 MMOL/L (20-26); ABG Oxygen Saturation 88.3 % (95-100); ABG PCO2 46.1 MM HG (35-48); ABG PH 7.384 (7.35-7.45); ABG PO2 55.5 MM HG (80-95); ABG TCO2 28.3 MMOL/L (23-27)
[2021-04-19] MEDS: DILTIAZEM INJ 100 MG in SODIUM CHLORIDE 0.9% 100 ML IV SCH (05:50)
[2021-04-19 06:03] LABS: Calcium 8.4 MG/DL (8.5-10.1); Osmolality,Calculated 308.8 MOS/KG (273-304)
[2021-04-19 06:42] LABS: Basophils % 0.2 % (0.0-0.8); Immature Granulocytes % 1.1 %; Immature Granulocytes Absolute 0.21 #; Lymphocytes # 1.9 10*3/uL (1.4-4.0); Lymphocytes % 10.4 % (21.3-54.2); Mean Corpuscular HGB Conc 29.7 GM/DL (32-36); Mean Corpuscular Volume 92.2 FL (87-102); Mean Platelet Volume 12.5 FL (9.6-12.0); Monocytes % 3.2 % (1.7-12.7); Neutrophils % 85.1 % (38.7-73.9); Platelet Count 321 T/CUMM (130-400); Red Blood Count 4.12 MC/CUMM (3.8-5.5); Red Cell Distribution Width 15.9 % (9.3-17.3); White Blood Count 18.5 T/CUMM (4-12)
[2021-04-19 06:45] LABS: Hemoglobin 11.3 GM/DL (12.0-16.0)
[2021-04-19 07:08] LABS: Ferritin 1948.9 ng/mL (8-252)
[2021-04-19] MEDS: CHOLECALCIFEROL 1,000 UNIT TABLET PO SCH (08:14)
[2021-04-19] MEDS: FAMOTIDINE 20 MG TABLET PER TUBE SCH ×2 (08:14→20:52)
[2021-04-19] MEDS: ZINC SULFATE 220 MG CAPSULE PO SCH (08:14)
[2021-04-19] MEDS: METOPROLOL TARTRATE 25 MG TABLET PO SCH ×2 (08:15→20:52)
[2021-04-19] MEDS: ASCORBIC ACID 500 MG TABLET PO SCH ×2 (08:15→20:53)
[2021-04-19] MEDS: DILTIAZEM 90 MG TABLET PO SCH ×4 (08:20→20:52)
[2021-04-19] MEDS: methylPREDNISolone SOD SUC 40 MG/1 ML VIAL IV SCH ×3 (10:56→20:52)
[2021-04-19] MEDS: cefTRIAXone 1,000 MG in SODIUM CHLORIDE 0.9% 100 ML IV SCH (13:07)
[2021-04-19] MEDS: ENOXAPARIN 150 MG/ML SYRINGE SUBCUT SCH ×2 (13:07→23:06)
[2021-04-20] MEDS: INSULIN LISPRO 100 UNIT/ML SUBCUT SCH ×4 (00:23→17:54)
[2021-04-20] MEDS: ROCURONIUM 1,000 MG in SODIUM CHLORIDE 0.9% 175 ML IV PRN ×2 (01:48→14:00)
[2021-04-20] MEDS: ALBUTEROL INHALER 18 GM INH SCH ×4 (01:48→18:40)
[2021-04-20] MEDS: methylPREDNISolone SOD SUC 40 MG/1 ML VIAL IV SCH ×4 (03:32→21:14)
[2021-04-20 03:39] LABS: ABG Base Excess -0.7 MMOL/L (-2.5-2.5); ABG HCO3 23.8 MMOL/L (20-26); ABG Oxygen Saturation 95.5 % (95-100); ABG PCO2 41.8 MM HG (35-48); ABG PH 7.376 (7.35-7.45); ABG PO2 82.5 MM HG (80-95); ABG TCO2 22.1 MMOL/L (23-27)
[2021-04-20 04:09] LABS: Basophils % 0.1 % (0.0-0.8); Hematocrit 36.2 VOL% (35.7-47.0); Hemoglobin 10.8 GM/DL (12.0-16.0); Immature Granulocytes % 0.9 %; Immature Granulocytes Absolute 0.19 #; Lymphocytes # 1.5 10*3/uL (1.4-4.0); Lymphocytes % 7.3 % (21.3-54.2); Mean Corpuscular HGB Conc 29.8 GM/DL (32-36); Mean Corpuscular Volume 89.8 FL (87-102); Mean Platelet Volume 12.5 FL (9.6-12.0); Monocytes % 2.3 % (1.7-12.7); NRBC # 0.08 10*3/uL; Neutrophils % 89.4 % (38.7-73.9); Platelet Count 322 T/CUMM (130-400); Red Blood Count 4.03 MC/CUMM (3.8-5.5); Red Cell Distribution Width 15.9 % (9.3-17.3); White Blood Count 20.3 T/CUMM (4-12)
[2021-04-20 04:20] LABS: Calcium 8.3 MG/DL (8.5-10.1); Osmolality,Calculated 323.6 MOS/KG (273-304); Potassium 4.9 MMOL/L (3.5-5.1)
[2021-04-20 04:22] LABS: Platelet Estimate Adequate
[2021-04-20] MEDS: DILTIAZEM INJ 100 MG in SODIUM CHLORIDE 0.9% 100 ML IV SCH (05:46)
[2021-04-20] MEDS: MIDAZOLAM 100 MG in SODIUM CHLORIDE 0.9% 80 ML IV PRN ×3 (05:47→21:26)
[2021-04-20] MEDS ORDERED: METOPROLOL TARTRATE 5 MG/5 ML VIAL IV ONE ×2 (07:12→07:15)
[2021-04-20] MEDS: DILTIAZEM 90 MG TABLET PO SCH ×4 (08:22→21:14)
[2021-04-20] MEDS: ASCORBIC ACID 500 MG TABLET PO SCH ×2 (08:23→21:15)
[2021-04-20] MEDS: FAMOTIDINE 20 MG TABLET PER TUBE SCH ×2 (08:23→21:14)
[2021-04-20] MEDS: CHOLECALCIFEROL 1,000 UNIT TABLET PO SCH (08:23)
[2021-04-20] MEDS: cefTRIAXone 1,000 MG in SODIUM CHLORIDE 0.9% 100 ML IV SCH (08:24)
[2021-04-20] MEDS: METOPROLOL TARTRATE 50 MG TABLET PO SCH ×2 (08:24→21:14)
[2021-04-20] MEDS: ZINC SULFATE 220 MG CAPSULE PO SCH (08:24)
[2021-04-20] MEDS: CEFEPIME 1,000 MG in SODIUM CHLORIDE 0.9% 100 ML IV SCH ×2 (12:33→21:14)
[2021-04-20] MEDS: SODIUM CHLORIDE 0.9% 1,000 ML IV SCH (14:00)
[2021-04-20] MEDS: fentaNYL INJ 5,000 MCG in SODIUM CHLORIDE 0.9% 150 ML IV PRN (14:00)
[2021-04-21] MEDS: ENOXAPARIN 150 MG/ML SYRINGE SUBCUT SCH (00:03)
[2021-04-21] MEDS: INSULIN LISPRO 100 UNIT/ML SUBCUT SCH ×4 (00:03→19:23)
[2021-04-21] MEDS: ROCURONIUM 1,000 MG in SODIUM CHLORIDE 0.9% 175 ML IV PRN (00:03)
[2021-04-21] MEDS: ALBUTEROL INHALER 18 GM INH SCH ×4 (03:04→18:20)
[2021-04-21 03:42] LABS: ABG Base Excess -2.8 MMOL/L (-2.5-2.5); ABG PCO2 40.9 MM HG (35-48); ABG PO2 98.9 MM HG (80-95); ABG TCO2 20.5 MMOL/L (23-27)
[2021-04-21] MEDS: methylPREDNISolone SOD SUC 40 MG/1 ML VIAL IV SCH ×4 (04:15→21:50)
[2021-04-21] MEDS: CEFEPIME 1,000 MG in SODIUM CHLORIDE 0.9% 100 ML IV SCH ×3 (04:16→21:15)
[2021-04-21] MEDS: DILTIAZEM INJ 100 MG in SODIUM CHLORIDE 0.9% 100 ML IV SCH (05:36)
[2021-04-21 05:37] LABS: Basophils % 0.1 % (0.0-0.8); Hematocrit 35.2 VOL% (35.7-47.0); Hemoglobin 10.5 GM/DL (12.0-16.0); Immature Granulocytes % 1.1 %; Immature Granulocytes Absolute 0.18 #; Lymphocytes # 1.5 10*3/uL (1.4-4.0); Lymphocytes % 8.9 % (21.3-54.2); Mean Corpuscular HGB Conc 29.8 GM/DL (32-36); NRBC # 0.14 10*3/uL; Neutrophils % 86.9 % (38.7-73.9); Platelet Count 317 T/CUMM (130-400); Red Blood Count 3.91 MC/CUMM (3.8-5.5); Red Cell Distribution Width 16.2 % (9.3-17.3)
[2021-04-21 05:44] LABS: Hypochromasia 1+; Microcytosis 1+; Platelet Estimate Adequate
[2021-04-21 05:46] LABS: Calcium 8.2 MG/DL (8.5-10.1); Osmolality,Calculated 332.4 MOS/KG (273-304); Potassium 4.9 MMOL/L (3.5-5.1)
[2021-04-21] MEDS: MIDAZOLAM 100 MG in SODIUM CHLORIDE 0.9% 80 ML IV PRN ×2 (06:39→16:00)
[2021-04-21] MEDS: ZINC SULFATE 220 MG CAPSULE PO SCH (08:08)
[2021-04-21] MEDS: FAMOTIDINE 20 MG TABLET PER TUBE SCH ×2 (08:09→22:19)
[2021-04-21] MEDS: ASCORBIC ACID 500 MG TABLET PO SCH ×2 (08:09→22:19)
[2021-04-21] MEDS: METOPROLOL TARTRATE 50 MG TABLET PO SCH ×2 (08:09→22:18)
[2021-04-21] MEDS: DILTIAZEM 90 MG TABLET PO SCH ×4 (08:09→21:45)
[2021-04-21] MEDS: CHOLECALCIFEROL 1,000 UNIT TABLET PO SCH (08:09)
[2021-04-21] MEDS: SODIUM CHLORIDE 0.9% 1,000 ML IV SCH (13:07)
[2021-04-22] MEDS: ENOXAPARIN 150 MG/ML SYRINGE SUBCUT SCH ×2 (00:21→23:35)
[2021-04-22] MEDS: INSULIN LISPRO 100 UNIT/ML SUBCUT SCH ×4 (00:21→17:50)
[2021-04-22] MEDS: MIDAZOLAM 100 MG in SODIUM CHLORIDE 0.9% 80 ML IV PRN ×3 (02:00→18:13)
[2021-04-22] MEDS: ALBUTEROL INHALER 18 GM INH SCH ×4 (02:03→20:02)
[2021-04-22 04:10] LABS: Basophils % 0.1 % (0.0-0.8); Hematocrit 34.9 VOL% (35.7-47.0); Hemoglobin 10.5 GM/DL (12.0-16.0); Immature Granulocytes % 0.9 %; Immature Granulocytes Absolute 0.15 #; Lymphocytes # 0.8 10*3/uL (1.4-4.0); Lymphocytes % 5.2 % (21.3-54.2); Mean Corpuscular HGB Conc 30.1 GM/DL (32-36); Mean Corpuscular Volume 89.3 FL (87-102); Mean Platelet Volume 12.8 FL (9.6-12.0); Monocytes % 2.7 % (1.7-12.7); NRBC # 0.18 10*3/uL; Neutrophils % 91.1 % (38.7-73.9); Platelet Count 320 T/CUMM (130-400); Red Blood Count 3.91 MC/CUMM (3.8-5.5); Red Cell Distribution Width 16.1 % (9.3-17.3); White Blood Count 16.2 T/CUMM (4-12)
[2021-04-22 04:14] LABS: ABG Base Excess -3.9 MMOL/L (-2.5-2.5); ABG Oxygen Saturation 92.6 % (95-100); ABG PCO2 37.9 MM HG (35-48); ABG PH 7.362 (7.35-7.45); ABG PO2 72.9 MM HG (80-95); ABG TCO2 22.2 MMOL/L (23-27); Allen Test Positive; Pt O2 Delivery Device Ventilator
[2021-04-22 04:49] LABS: Albumin 1.9 G/DL (3.4-5.0); Bilirubin,Direct 0.18 MG/DL (0.0-0.20); Bilirubin,Indirect 0.5 MG/DL (0.0-1.0); Bilirubin,Total 0.7 MG/DL (0.20-1.00); Calcium 8.4 MG/DL (8.5-10.1); Ferritin 1188.1 ng/mL (8-252); Osmolality,Calculated 336.6 MOS/KG (273-304); Potassium 4.8 MMOL/L (3.5-5.1); Thyroid Stimulating Hormone 0.67 uIU/ml (0.358-3.74); Total Protein 6.3 G/DL (6.4-8.2)
[2021-04-22] MEDS: methylPREDNISolone SOD SUC 40 MG/1 ML VIAL IV SCH ×4 (05:15→20:36)
[2021-04-22] MEDS: CEFEPIME 1,000 MG in SODIUM CHLORIDE 0.9% 100 ML IV SCH ×3 (05:18→20:37)
[2021-04-22] MEDS: DILTIAZEM INJ 100 MG in SODIUM CHLORIDE 0.9% 100 ML IV SCH (05:30)
[2021-04-22 06:34] LABS: Anisocytosis 1+; Band Neutrophils 7 % (0-10); Lymphocytes 4 % (20-55); Nucleated Red Blood Cells 2 (0-5); Platelet Estimate Normal; Segmented Neutrophils 87 % (50-85); Total Cells Counted 100
[2021-04-22] MEDS: FAMOTIDINE 20 MG TABLET PER TUBE SCH ×2 (08:10→20:36)
[2021-04-22] MEDS: DILTIAZEM 90 MG TABLET PO SCH ×4 (08:10→22:00)
[2021-04-22] MEDS: ASCORBIC ACID 500 MG TABLET PO SCH ×2 (08:10→20:36)
[2021-04-22] MEDS: METOPROLOL TARTRATE 50 MG TABLET PO SCH ×2 (08:10→22:01)
[2021-04-22] MEDS: CHOLECALCIFEROL 1,000 UNIT TABLET PO SCH (08:10)
[2021-04-22] MEDS: ZINC SULFATE 220 MG CAPSULE PO SCH (08:11)
[2021-04-22] MEDS: SODIUM CHLOR 0.45% KCL 20 MEQ 20 MEQ/1,000 ML BAG IV SCH (10:51)
[2021-04-22] MEDS: SODIUM CHLORIDE 0.9% 1,000 ML IV SCH (12:18)
[2021-04-22] MEDS: INSULIN GLARGINE 100 UNIT/ML SUBCUT SCH (12:39)
[2021-04-23] MEDS: INSULIN LISPRO 100 UNIT/ML SUBCUT SCH ×4 (00:55→18:17)
[2021-04-23] MEDS: ALBUTEROL INHALER 18 GM INH SCH ×4 (01:10→21:33)
[2021-04-23] MEDS: SODIUM CHLOR 0.45% KCL 20 MEQ 20 MEQ/1,000 ML BAG IV SCH (02:00)
[2021-04-23] MEDS: methylPREDNISolone SOD SUC 40 MG/1 ML VIAL IV SCH ×4 (02:55→21:32)
[2021-04-23] MEDS: MIDAZOLAM 100 MG in SODIUM CHLORIDE 0.9% 80 ML IV PRN ×2 (03:45→13:31)
[2021-04-23 03:58] LABS: Basophils % 0.1 % (0.0-0.8); Hematocrit 34.3 VOL% (35.7-47.0); Hemoglobin 10.3 GM/DL (12.0-16.0); Immature Granulocytes Absolute 0.18 #; Lymphocytes # 0.7 10*3/uL (1.4-4.0); Lymphocytes % 4.3 % (21.3-54.2); Mean Corpuscular Volume 90.5 FL (87-102); Mean Platelet Volume 13.2 FL (9.6-12.0); Monocytes % 2.7 % (1.7-12.7); NRBC # 0.15 10*3/uL; Neutrophils % 91.9 % (38.7-73.9); Platelet Count 309 T/CUMM (130-400); Red Blood Count 3.79 MC/CUMM (3.8-5.5); Red Cell Distribution Width 16.5 % (9.3-17.3); White Blood Count 17.2 T/CUMM (4-12)
[2021-04-23 04:10] LABS: Calcium 8.4 MG/DL (8.5-10.1); Osmolality,Calculated 340.4 MOS/KG (273-304); Potassium 5.1 MMOL/L (3.5-5.1)
[2021-04-23 04:28] LABS: ABG Base Excess -5.8 MMOL/L (-2.5-2.5); ABG HCO3 19.7 MMOL/L (20-26); ABG Oxygen Saturation 93.6 % (95-100); ABG PCO2 38.7 MM HG (35-48); ABG PH 7.324 (7.35-7.45); ABG PO2 76.9 MM HG (80-95); ABG TCO2 20.9 MMOL/L (23-27)
[2021-04-23 04:29] LABS: Allen Test Positive; Pt O2 Delivery Device Ventilator
[2021-04-23] MEDS: CEFEPIME 1,000 MG in SODIUM CHLORIDE 0.9% 100 ML IV SCH ×3 (05:20→21:10)
[2021-04-23] MEDS: DILTIAZEM INJ 100 MG in SODIUM CHLORIDE 0.9% 100 ML IV SCH (05:23)
[2021-04-23 05:33] LABS: Band Neutrophils 6 % (0-10); Lymphocytes 5 % (20-55); Nucleated Red Blood Cells 3 (0-5); Segmented Neutrophils 89 % (50-85); Total Cells Counted 100
[2021-04-23 05:34] LABS: Anisocytosis 2+; Macrocytosis 1+; Platelet Estimate Normal
[2021-04-23] MEDS: fentaNYL INJ 5,000 MCG in SODIUM CHLORIDE 0.9% 150 ML IV PRN (06:45)
[2021-04-23] MEDS: FAMOTIDINE 20 MG TABLET PER TUBE SCH ×2 (08:29→21:36)
[2021-04-23] MEDS: CHOLECALCIFEROL 1,000 UNIT TABLET PO SCH (08:29)
[2021-04-23] MEDS: ZINC SULFATE 220 MG CAPSULE PO SCH (08:30)
[2021-04-23] MEDS: ASCORBIC ACID 500 MG TABLET PO SCH ×2 (08:30→21:37)
[2021-04-23] MEDS: INSULIN GLARGINE 100 UNIT/ML SUBCUT SCH (08:31)
[2021-04-23] MEDS: SODIUM CHLORIDE 0.45% 1,000 ML IV SCH ×2 (10:00→23:20)
[2021-04-23] MEDS: METOPROLOL TARTRATE 50 MG TABLET PO SCH ×2 (10:24→22:44)
[2021-04-23] MEDS: DILTIAZEM 90 MG TABLET PO SCH ×4 (10:24→21:36)
[2021-04-23] MEDS: SODIUM CHLORIDE 0.9% 1,000 ML IV SCH (11:39)
[2021-04-24] MEDS: INSULIN LISPRO 100 UNIT/ML SUBCUT SCH ×4 (01:15→19:07)
[2021-04-24] MEDS: ENOXAPARIN 150 MG/ML SYRINGE SUBCUT SCH (01:48)
[2021-04-24] MEDS: ALBUTEROL INHALER 18 GM INH SCH ×4 (01:51→19:20)
[2021-04-24] MEDS: methylPREDNISolone SOD SUC 40 MG/1 ML VIAL IV SCH ×4 (02:45→20:23)
[2021-04-24 03:36] LABS: ABG Base Excess -5.8 MMOL/L (-2.5-2.5); ABG HCO3 19.7 MMOL/L (20-26); ABG PCO2 35.4 MM HG (35-48); ABG PH 7.343 (7.35-7.45); ABG PO2 81.7 MM HG (80-95); ABG TCO2 16.9 MMOL/L (23-27)
[2021-04-24 03:37] LABS: Allen Test Positive; Pt O2 Delivery Device Ventilator
[2021-04-24] MEDS: CEFEPIME 1,000 MG in SODIUM CHLORIDE 0.9% 100 ML IV SCH ×3 (04:15→20:23)
[2021-04-24 04:38] LABS: Basophils % 0.1 % (0.0-0.8); Hematocrit 34.6 VOL% (35.7-47.0); Hemoglobin 10.5 GM/DL (12.0-16.0); Immature Granulocytes % 0.9 %; Immature Granulocytes Absolute 0.17 #; Lymphocytes # 0.4 10*3/uL (1.4-4.0); Lymphocytes % 2.2 % (21.3-54.2); Mean Corpuscular HGB Conc 30.3 GM/DL (32-36); Mean Corpuscular Volume 89.4 FL (87-102); Mean Platelet Volume 12.6 FL (9.6-12.0); Monocytes % 3.3 % (1.7-12.7); NRBC # 0.14 10*3/uL; Neutrophils % 93.5 % (38.7-73.9); Platelet Count 296 T/CUMM (130-400); Red Blood Count 3.87 MC/CUMM (3.8-5.5); Red Cell Distribution Width 17.4 % (9.3-17.3); White Blood Count 17.9 T/CUMM (4-12)
[2021-04-24] MEDS: DILTIAZEM INJ 100 MG in SODIUM CHLORIDE 0.9% 100 ML IV SCH (04:39)
[2021-04-24 05:03] LABS: Band Neutrophils 1 % (0-10); Hypochromasia 1+; Lymphocytes 1 % (20-55); Nucleated Red Blood Cells 1 (0-5); Segmented Neutrophils 97 % (50-85); Total Cells Counted 100
[2021-04-24 05:04] LABS: Microcytosis 1+; Platelet Estimate Normal
[2021-04-24 05:15] LABS: Albumin 1.9 G/DL (3.4-5.0); Bilirubin,Direct 0.18 MG/DL (0.0-0.20); Bilirubin,Indirect 0.8 MG/DL (0.0-1.0); Calcium 8.2 MG/DL (8.5-10.1); Ferritin 787.9 ng/mL (8-252); Osmolality,Calculated 338.4 MOS/KG (273-304); Potassium 5.3 MMOL/L (3.5-5.1)
[2021-04-24] MEDS: ASCORBIC ACID 500 MG TABLET PO SCH ×2 (09:02→20:24)
[2021-04-24] MEDS: FAMOTIDINE 20 MG TABLET PER TUBE SCH ×2 (09:03→20:25)
[2021-04-24] MEDS: METOPROLOL TARTRATE 50 MG TABLET PO SCH ×2 (09:03→20:24)
[2021-04-24] MEDS: CHOLECALCIFEROL 1,000 UNIT TABLET PO SCH (09:03)
[2021-04-24] MEDS: ZINC SULFATE 220 MG CAPSULE PO SCH (09:03)
[2021-04-24] MEDS: INSULIN GLARGINE 100 UNIT/ML SUBCUT SCH (09:04)
[2021-04-24] MEDS: DILTIAZEM 60 MG TABLET PO SCH ×4 (09:08→20:25)
[2021-04-24] MEDS ORDERED: INSULIN GLARGINE 100 UNIT/ML SUBCUT ONE (17:33)
[2021-04-24] MEDS: SODIUM CHLORIDE 0.45% 1,000 ML IV SCH (17:54)
[2021-04-24] MEDS: SODIUM CHLORIDE 0.9% 1,000 ML IV SCH (17:54)
[2021-04-25] MEDS: ENOXAPARIN 150 MG/ML SYRINGE SUBCUT SCH (00:45)
[2021-04-25] MEDS: INSULIN LISPRO 100 UNIT/ML SUBCUT SCH ×5 (00:55→14:24)
[2021-04-25] MEDS: ALBUTEROL INHALER 18 GM INH SCH ×3 (01:38→13:03)
[2021-04-25 03:18] LABS: ABG Base Excess -11.9 MMOL/L (-2.5-2.5); ABG HCO3 15.1 MMOL/L (20-26); ABG Oxygen Saturation 90.2 % (95-100); ABG PCO2 53.7 MM HG (35-48); ABG PO2 73.6 MM HG (80-95); ABG TCO2 16.7 MMOL/L (23-27)
[2021-04-25 03:24] LABS: ABG PH 7.128 (7.35-7.45)
[2021-04-25 03:29] LABS: Basophils % 0.1 % (0.0-0.8)
[2021-04-25] MEDS: methylPREDNISolone SOD SUC 40 MG/1 ML VIAL IV SCH ×3 (03:30→16:04)
[2021-04-25] MEDS: CEFEPIME 1,000 MG in SODIUM CHLORIDE 0.9% 100 ML IV SCH ×2 (03:43→11:37)
[2021-04-25 03:50] LABS: Hematocrit 36.5 VOL% (35.7-47.0); Immature Granulocytes % 1.6 %; Immature Granulocytes Absolute 0.45 #; Lymphocytes # 0.6 10*3/uL (1.4-4.0); Lymphocytes % 2.1 % (21.3-54.2); Mean Corpuscular HGB Conc 28.5 GM/DL (32-36); Mean Corpuscular Volume 94.6 FL (87-102); Mean Platelet Volume 12.8 FL (9.6-12.0); Monocytes % 2.5 % (1.7-12.7); NRBC # 0.21 10*3/uL; Neutrophils % 93.7 % (38.7-73.9); Platelet Count 296 T/CUMM (130-400); Red Blood Count 3.86 MC/CUMM (3.8-5.5); Red Cell Distribution Width 18.6 % (9.3-17.3); White Blood Count 28.2 T/CUMM (4-12)
[2021-04-25 03:52] LABS: Hemoglobin 10.4 GM/DL (12.0-16.0)
[2021-04-25 03:57] LABS: Hypochromasia Slight; Lymphocytes 2 % (20-55); Microcytosis Slight; Nucleated Red Blood Cells 2 (0-5); Platelet Estimate Adequate; Segmented Neutrophils 96 % (50-85); Total Cells Counted 100
[2021-04-25 04:01] LABS: Bilirubin,Total 0.6 MG/DL (0.20-1.00); Calcium 8.5 MG/DL (8.5-10.1); Osmolality,Calculated 338.7 MOS/KG (273-304); Total Protein 6.3 G/DL (6.4-8.2)
[2021-04-25 04:18] LABS: Potassium 6.6 MMOL/L (3.5-5.1)
[2021-04-25] MEDS ORDERED: SODIUM BICARBONATE 50 MEQ/50 ML VIAL IV ONE ×2 (04:47→04:59)
[2021-04-25] MEDS ORDERED: SODIUM POLYSTYRENE SULFATE 15 GM/60 ML BOTTLE PO ONE (05:01)
[2021-04-25] MEDS: DILTIAZEM INJ 100 MG in SODIUM CHLORIDE 0.9% 100 ML IV SCH (05:39)
[2021-04-25] MEDS ORDERED: SODIUM CHLORIDE 0.45% 500 ML IV ONE (06:10)
[2021-04-25] MEDS: SODIUM CHLORIDE 0.45% 1,000 ML IV SCH (07:21)
[2021-04-25] MEDS: ZINC SULFATE 220 MG CAPSULE PO SCH (08:35)
[2021-04-25] MEDS: METOPROLOL TARTRATE 50 MG TABLET PO SCH (08:35)
[2021-04-25] MEDS: FAMOTIDINE 20 MG TABLET PER TUBE SCH (08:35)
[2021-04-25] MEDS: CHOLECALCIFEROL 1,000 UNIT TABLET PO SCH (08:35)
[2021-04-25] MEDS: DILTIAZEM 60 MG TABLET PO SCH ×2 (08:36→12:59)
[2021-04-25] MEDS: ASCORBIC ACID 500 MG TABLET PO SCH (08:37)
[2021-04-25] MEDS ORDERED: INSULIN GLARGINE 100 UNIT/ML SUBCUT SCH ×2 (09:00→21:00)
[2021-04-25] MEDS ORDERED: SODIUM POLYSTYRENE SULFATE 15 GM/60 ML BOTTLE PO SCH (13:00)
[2021-04-25 13:02] VITALS: BP 94/54
[2021-04-25 14:29] LABS: ABG HCO3 14.9 MMOL/L (20-26); ABG Oxygen Saturation 90.3 % (95-100); ABG PCO2 46.4 MM HG (35-48); ABG PO2 70.5 MM HG (80-95); ABG TCO2 15.7 MMOL/L (23-27); Glucose Heart Surgery 332 MG/DL (74-106); Hematocrit Heart Surgery 28.6 PERCENT (37-47); Hemoglobin Heart Surgery 9.2 G/DL (12.0-16.0)
[2021-04-25 14:33] LABS: ABG PH 7.157 (7.35-7.45); Potassium Heart/CVR 6.8 MMOL/L (3.5-5.1)
[2021-04-25] MEDS ORDERED: DEXTROSE 50% 25 GM/50 ML VIAL IV ONE ×2 (14:38→15:00)
[2021-04-25] MEDS ORDERED: INSULIN REGULAR 100 UNIT/ML IV ONE (14:38)
[2021-04-25] MEDS ORDERED: SODIUM BICARB INJ 50 MEQ in DEXTROSE 5% 1,000 ML IV SCH (15:00)
[2021-04-25] MEDS ORDERED: SODIUM BICARB INJ 100 MEQ in SODIUM CHLORIDE 0.45% 1,000 ML IV SCH (15:00)
[2021-04-25] MEDS ORDERED: CALCIUM GLUCONATE 1,000 MG in SODIUM CHLORIDE 0.9% 100 ML IV ONE (15:00)
[2021-04-25] MEDS ORDERED: SODIUM BICARBONATE 50 MEQ/50 ML SYRINGE IV ONE (15:01)
[2021-04-25] MEDS ORDERED: LIDOCAINE 100 MG/5 ML SYRINGE ONE (15:01)
[2021-04-25] MEDS ORDERED: DEXTROSE 50% 25 GM/50 ML SYRINGE IV ONE (15:01)
[2021-04-25] MEDS ORDERED: EPINEPHrine 1 MG/10 ML SYRINGE ONE (15:01)
[2021-04-25] MEDS ORDERED: INSULIN REGULAR 100 UNIT/ML ONE (15:01)
[2021-04-25] MEDS ORDERED: CALCIUM CHLORIDE 1,000 MG/10 ML SYRINGE IV ONE (15:01)
[2021-04-25] MEDS ORDERED: EPINEPHrine 1 MG/ML VIAL ONE (15:01)
[2021-04-25] MEDS ORDERED: NOREPINEPHRINE 8 MG in SODIUM CHLORIDE 0.9% 242 ML IV PRN (15:20)
[2021-04-26] MEDS ORDERED: FAMOTIDINE 20 MG TABLET PER TUBE SCH (09:00)
== END 2021-04-25 15:25 | disposition expired | DRG 207 ==
LOC: N.ED 12:59 → SUATTDRO 15:35 → N.EDINP 15:35 → N.ICU 04-11 02:19
PROVIDERS: ADMIT Phlebology; ATTEND Internal Medicine